=== PATIENT | female | born 1995 | race Asian ===

== ENCOUNTER 2025-07-05 15:13 | Emergency (ER) | payer OTHER, MEDICAID ==
[~2025-07-05] VITALS: Ht 162.6 cm; Wt 64.0 kg
[2025-07-05 15:23] VITALS: O2SAT 100
[2025-07-05] MEDS: MORPHINE SULFATE 4 MG/ML INJ (FOR IV/IM USE) IV ONE (15:59)
[2025-07-05 16:44] LABS: BASOPHILS % 0.4 % (0.0-2.0); EOSINOPHILS % 2.3 % (0.0-5.0); HEMATOCRIT. 37.6 % (36.0-48.0); HEMOGLOBIN. 12.2 g/dL (12.0-16.0); LYMPHOCYTES % 17.0 % (20.0-50.0); MEAN PLATELET VOLUME 7.7 fl (7.4-10.4); MONOCYTES % 8.7 % (2.0-8.0); NEUTROPHILS % 71.6 % (40.0-76.0); PLATELET 249 x1000/uL (130-400); RED BLOOD CELL COUNT 4.02 mill/uL (4.2-5.4); RED CELL DISTRIBUTION WIDTH 13.6 % (11.6-14.6)
[2025-07-05 16:58] LABS: HCG SCREEN NEGATIVE
[2025-07-05 17:02] LABS: CREATININE 0.7 mg/dL (0.6-1.0); UREA NITROGEN BLOOD 7 mg/dL (9-23)
[2025-07-05] MEDS ORDERED: KETO10TA2 MT (18:07)
[2025-07-05 18:50] VITALS: BP 126/87; PULSE 85; RESP 14; TEMP 36.7; O2SAT 100
== END 2025-07-05 18:50 | disposition home or self-care (01) ==
LOC: ER 15:13
DX: S52.501A Unspecified fracture of the lower end of right radius, initial encounter for closed fracture (principal); S01.111A Laceration without foreign body of right eyelid and periocular area, initial encounter; V89.2XXA Person injured in unspecified motor-vehicle accident, traffic, initial encounter; Y93.89 Activity, other specified; Y92.410 Unspecified street and highway as the place of occurrence of the external cause; Y99.8 Other external cause status
CPT/HCPCS: 99285; 96374; 71045; 80048; 84703; 85025; 36415; 72170; 73090; 73110; 73120; 93005; 12011; J2270; A6449; A4565